=== PATIENT | male | born 1985 | race Caucasian/White ===

== ENCOUNTER → 2025-07-23 07:53 | Outpatient (CLI) | payer OTHER, SELFPAY ==
--- NOTE | 2025-07-23 07:54 | DI.RAD.S_ITS ---
PROCEDURE: XR LUMBAR SPINE 3V INDICATIONS: chronic pain TECHNIQUE: 3 views of the lumbar spine were acquired. COMPARISON: None. FINDINGS: Mild decreased height with anterior wedging L1 vertebral body suggests compression fracture, age indeterminate less likely to represent congenital appearance. If indicated MR lumbar spine may be useful for further evaluation. Mild degenerative changes with disc space narrowing, small osteophytes, facet osseous hypertrophic changes most notably L4-5 and L5-S1. Pattern of constipation incidentally noted. Mild levoscoliosis on the frontal image some of which may be artifact from positioning. IMPRESSION: Mild decreased height L1. Degenerative changes. If symptoms persist or worsen, or there is high clinical suspicion of lumbar abnormality, MRI could be performed. Dictated by: Bj Cortez M.D. on 07/23/2025 at 8:25 Approved by: Bj Cortez M.D. on 07/23/2025 at 8:29
[2025-07-23 08:32] LABS: Add Manual Diff / Slide Review NO; Hematocrit 42.8 % (41-53); Hemoglobin 14.7 g/dL (13.5-17.5); Lymphocytes Absolute Auto 1400 /uL (1100-4500); Mean Corpuscular HGB Conc 34.5 % (30-36); Mean Corpuscular Hemoglobin 30.2 PG (26-34); Mean Corpuscular Volume 87.6 fL (80-100); Platelet Count 229 X10^3/uL (150-400)
[2025-07-23 08:41] LABS: Alanine Aminotransferase 23 IU/L (<50); Albumin 4.5 g/dL (3.5-5.0); Albumin Globulin Ratio 1.8 (1.0-2.8); Alkaline Phosphatase 57 U/L (38-126); Blood Urea Nitrogen 12 mg/dL (9-20); Calcium 9.5 mg/dL (8.4-10.2); Carbon Dioxide 26 mmol/L (22-32); Chloride 107 mmol/L (98-107); Cholesterol 167 mg/dL (140-199); Estimated Glomerular Filt Rate > 60 mL/min (>60); Globulin 2.5 g/dL (1.7-4.1); Glucose 86 mg/dL (70-99); HDL Cholesterol 41 mg/dL (40-60); HEMOLYSIS < 15 (0-50); Potassium 4.1 mmol/L (3.4-5.1); Sodium 141 mmol/L (137-145); Total Protein 7.0 g/dL (6.3-8.2); Triglycerides 140 mg/dL (35-150)
== END ==
PROVIDERS: PCP Family Medicine; Referring Provider Family Medicine; Visit Provider Family Medicine
DX: M54.50 Low back pain, unspecified (principal); G89.29 Other chronic pain; E66.811 Obesity, class 1; M25.78 Osteophyte, vertebrae; K59.00 Constipation, unspecified
CPT/HCPCS: 36415; 72100; 80053; 80061; 85025